=== PATIENT | female | born 1965 | race Caucasian/White ===

== ENCOUNTER 2024-02-20 10:31 | Outpatient (CLI) | payer BC, SELFPAY ==
--- NOTE | ~2024-02-20 | XR_ITS ---
XR cervical spine 4-5V Ordering provider: Toni Carmichael, DC CCST History: . Cervical radiculopathy . Comparison: None. FINDINGS: VERTEBRAL BODIES: Normal height and alignment. No visible fracture or subluxation. The dens is intact . DISK SPACES: Narrowing of the disc C6-C7. PARASPINOUS SOFT TISSUES: No prevertebral soft tissue swelling. IMPRESSION: No acute osseous abnormality cervical spine. Degenerative disc disease at the level of C6-C7. Reviewed, dictated and finalized at location A. ER CASHIER
--- NOTE | ~2024-02-20 | XR_ITS ---
3 VIEWS LUMBAR SPINE Ordering provider: Toni Carmichael, DC CCST History: . Lbp . Comparison: None. FINDINGS: VERTEBRAL BODIES: No visible fracture or subluxation. DISK SPACES: Normal. Facet joint disease at the level of L4-L5 and L5-S1. SOFT TISSUES: Normal. IMPRESSION: No acute osseous abnormality lumbar spine. Reviewed, dictated and finalized at location A. R PROCESSOR
--- NOTE | ~2024-02-20 | XR_ITS ---
3 VIEWS THORACIC SPINE Ordering provider: Toni Carmichael, DC CCST History: . Mid back pain . Comparison: None. FINDINGS: VERTEBRAL BODIES: Normal height and alignment. No visible fracture or subluxation. DISK SPACES: Normal. SOFT TISSUES: Normal. IMPRESSION: No acute osseous abnormality of the thoracic spine. Reviewed, dictated and finalized at location A. OR BUSINESS CONSULTANT
== END 2024-02-20 10:32 | disposition home or self-care (01) ==
PROVIDERS: PCP Chiropractor; Visit Provider Chiropractor
DX: M50.323 Other cervical disc degeneration at C6-C7 level (principal)
CPT/HCPCS: 72050; 72070; 72100